=== PATIENT | male | born 1945 | race Caucasian/White ===

== ENCOUNTER → 2023-05-27 09:00 | Day surgery (SDC) | payer MEDICARE, OTHER, SELFPAY ==
[2023-05-27 07:51] VITALS: BP 123/71
[2023-05-27 07:54] VITALS: BMI 20.5
[2023-05-27 10:10] VITALS: BP 123/78
[2023-05-27 10:30] VITALS: BP 107/79
== END ==
LOC: GI 09:00
PROVIDERS: ATTENDING PHYSICIAN Internal Medicine Gastroenterology; FAMILY PHYSICIAN Family Medicine
DX: I89.9 Noninfective disorder of lymphatic vessels and lymph nodes, unspecified (principal); K76.89 Other specified diseases of liver; R93.5 Abnormal findings on diagnostic imaging of other abdominal regions, including retroperitoneum; C96.9 Malignant neoplasm of lymphoid, hematopoietic and related tissue, unspecified
CPT/HCPCS: 43238; 88172; 88173; 88305; 81459; 88341; 88342